=== PATIENT | female | born 1995 | race Caucasian/White ===

== ENCOUNTER 2018-05-26 23:30 | Inpatient (IN) | payer SELFPAY ==
[~2018-05-26] VITALS: Ht 170.2 cm; Wt 136.1 kg
[2018-05-26] MEDS ORDERED: MORPHINE SULFATE 4 MG/ML SYR IVP ONE (23:55)
[2018-05-26] MEDS ORDERED: ONDANSETRON 4 MG/2 ML VIAL IVP ONE (23:55)
[2018-05-27 00:12] LABS: BASOPHILS # (AUTO) 0.1 K/uL (0.00-0.22); BASOPHILS % (AUTO) 0.8 % (0.0-2.0); EOSINOPHILS # (AUTO) 0.4 K/uL (0-0.4); EOSINOPHILS % (AUTO) 2.9 % (0.0-4.0); HEMATOCRIT 38.4 % (36-48); HEMOGLOBIN 12.2 g/dL (12.0-16.0); LYMPHOCYTES % (AUTO) 24.1 % (20.5-51.1); MEAN CORPUSCULAR HEMOGLOBIN 24 pg (27-31); MEAN CORPUSCULAR HGB CONC 32 g/dL (33-37); MEAN CORPUSCULAR VOLUME 75.1 fL (80-94); MONOCYTES # (AUTO) 0.8 K/uL (0.8-1.0); MONOCYTES % (AUTO) 6.2 % (1.7-9.3); NEUTROPHILS # (AUTO) 8.2 K/uL (1.8-7.7); PLATELET COUNT (AUTO) 307 K/uL (140-450); RED BLOOD CELL COUNT(AUTO) 5.12 MIL/uL (4.20-5.40); RED CELL DISTRIBUTION WIDTH 17.8 % (11.6-13.7); WHITE BLOOD COUNT (AUTO) 12.4 K/uL (4.8-10.8)
[2018-05-27 00:27] LABS: ANION GAP 11.2 (8-16); CARBON DIOXIDE 28.8 mmol/L (21-32); CREATININE 0.6 mg/dL (0.6-1.3)
[2018-05-27 00:32] LABS: ALBUMIN 3.9 g/dL (3.4-5.0); TOTAL BILIRUBIN 0.2 mg/dL (0.0-1.0)
[2018-05-27 00:55] LABS: APPEARANCE,URINE HAZY (CLEAR); COLOR,URINE YELLOW (YELLOW)
[2018-05-27 00:56] LABS: BLOOD, URINE 2+ (NEGATIVE); PH,URINE 7.5 (5.0-9.0); UGLUCOSE NEGATIVE (NEGATIVE)
[2018-05-27 00:57] LABS: BILIRUBIN,URINE NEGATIVE (NEGATIVE); LEUKOCYTE ESTERASE ,URINE 1+ (NEGATIVE); NITRITE, URINE POSITIVE (NEGATIVE)
[2018-05-27 01:03] LABS: RBC,URINE 3-10 (FEW) /HPF (0-5)
[2018-05-27] MEDS ORDERED: PIPERACILLIN/TAZOBACTAM 3.375 GM in DEXTROSE 5% 50 ML IV ONE (01:10)
[2018-05-27] MEDS ORDERED: PIPERACILLIN/TAZOBACTAM 3.375 GM VIAL IV ONE (01:20)
[2018-05-27] MEDS ORDERED: KETOROLAC 30 MG/ML VIAL IVP ONE (01:20)
[2018-05-27] MEDS ORDERED: NACL 0.9% 1,000 ML IV ONE (01:25)
[2018-05-27] MEDS ORDERED: MORPHINE SULFATE 2 MG/ML SYR IVP PRN (01:45)
[2018-05-27] MEDS ORDERED: MORPHINE SULFATE 4 MG/ML SYR IVP PRN (01:45)
[2018-05-27] MEDS ORDERED: ONDANSETRON 4 MG/2 ML VIAL IVP PRN (01:45)
[2018-05-27] MEDS ORDERED: ACETAMINOPHEN 325 MG TAB PO PRN (01:45)
[2018-05-27 02:10] VITALS: BP 138/80
[2018-05-27] MEDS: NACL 0.9% 1,000 ML IV SCH ×2 (02:46→12:37)
[2018-05-27] MEDS ORDERED: INFLUENZA VIRUS VACCINE QUAD 0.5 ML SYR IMVAC PRN (05:05)
[2018-05-27 08:00] VITALS: BP 127/71
[2018-05-27 16:00] VITALS: BP 129/77
== END 2018-05-27 17:30 | disposition home or self-care (01) | DRG 445 ==
LOC: MED 23:30 → MTU 05-27 01:44
PROVIDERS: ADMIT Hospitalist; ATTEND Hospitalist
DX: K80.64 Calculus of gallbladder and bile duct with chronic cholecystitis without obstruction (principal); Z68.42 Body mass index [BMI] 45.0-49.9, adult; E66.01 Morbid (severe) obesity due to excess calories
CPT/HCPCS: 36415; 76705; 80053; 81001; 83605; 83690; 85025; 87040; 87081; 87086; 87186; 90658; 96365; 96375; 99285; J1885; J2270; J2405; J2543; Q0092

== ENCOUNTER 2019-02-20 00:38 | Emergency (ER) | payer SELFPAY ==
[~2019-02-20] VITALS: Ht 167.6 cm; Wt 136.1 kg
[2019-02-20 00:40] VITALS: BP 138/90
--- NOTE | 2019-02-20 00:40 | NUR ---
TO BED # 05 AMBULATORY
--- NOTE | 2019-02-20 00:53 | NUR ---
Dr. Braga examining patient.
[2019-02-20] MEDS ORDERED: LORazepam 1 MG TAB PO ONE (00:55)
--- NOTE | 2019-02-20 00:57 | NUR ---
EMT PERFORMING EKG AT BEDSIDE.
--- NOTE | 2019-02-20 01:09 | NUR ---
23 YO F BIB SELF AND MOM PRESENTS TO ED C/O S/SX ANXIETY EPISODES WHILE AT WORK X 2-3 DAYS. PT REPORTS FEELINGS OF SOB, RACING HR, HEAD NUMBNESS AND DIZZINESS. -- PT AWAKE, A/O X 4, SPEECH CLEAR, EQUAL STRENGTH NOTED TO ALL EXTREMETIES, EYES PERRLA. ANSWERING QUESTIONS APPROPRIATELY. -- SKIN PINK, WARM, DRY. BREATHING EVEN, UNLABORED. -- LMP: 2 MONTHS AGO; HX OF IRREGULAR PERIODS PMH-- WAS TOLD SHE HAD ABNORMAL THYROID LEVELS BUT NEVER FOLLOWED UP.
--- NOTE | 2019-02-20 01:45 | NUR ---
PT STATES SHE FEELS BETTER; NO LONGER FEELS ANXIOUS. ATIVAN EFFECTIVE.
[2019-02-20 01:48] VITALS: BP 107/70
== END 2019-02-20 01:48 | disposition home or self-care (01) ==
LOC: MED 00:38
DX: F41.9 Anxiety disorder, unspecified (principal); R20.2 Paresthesia of skin
CPT/HCPCS: 93005; 99284

== ENCOUNTER 2019-11-02 16:20 | Emergency (ER) | payer OTHER, SELFPAY ==
[~2019-11-02] VITALS: Ht 170.2 cm; Wt 131.5 kg
[2019-11-02 16:20] VITALS: BP 156/87
[2019-11-02 17:33] VITALS: BP 134/67
== END 2019-11-02 17:34 | disposition home or self-care (01) ==
LOC: EEVIPCON 16:20 → MED 16:20
DX: R05 Cough (principal); Z20.828 Contact with and (suspected) exposure to other viral communicable diseases; R06.02 Shortness of breath
CPT/HCPCS: 36415; 71045; 87635; 99284; Q0092

== ENCOUNTER 2020-04-14 18:10 | Emergency (ER) | payer OTHER, SELFPAY ==
[~2020-04-14] VITALS: Ht 167.6 cm; Wt 136.1 kg
[2020-04-14 18:16] VITALS: BP 157/90
--- NOTE | 2020-04-14 18:27 | NUR ---
ASHA BRANDT AT BEDSIDE EVALUATING PT.
[2020-04-14] MEDS ORDERED: KETOROLAC 60 MG/2 ML VIAL IM ONE (18:30)
--- NOTE | 2020-04-14 18:40 | NUR ---
C/O L WRIST PAIN X YESTERDAY.PT AOX 4, AFIBRILE , AMBULATORY WITH STEADY GAIT, ABLE TO MOVE LEFT HAND WITH PAIN 9/10 , GOOD RADIAL PULSE AND CAPILLARY REFILL. MED HX: GALL STONE
--- NOTE | 2020-04-14 18:53 | NUR ---
XRAY AT BEDSIDE.
[2020-04-14] MEDS ORDERED: HALOPERIDOL IM 5 MG/ML VIAL ONE (18:58)
--- NOTE | 2020-04-14 19:07 | NUR ---
GAVE REPORT TO JANEL KAMARA , PT COMFORTABLE IN BED SIDE RAILS UP AND LOCK AT LOWEST POSITION.
--- NOTE | 2020-04-14 19:10 | NUR ---
REPORT RECEIVED FROM TOMÁS ISLAS
--- NOTE | 2020-04-14 19:19 | NUR ---
PTS LEFT WRIST WAS PLACED IN A WRIST SPLINT. [place] [facility] [place]
[2020-04-14 19:30] VITALS: BP 157/90
[2020-04-17] MEDS ORDERED: FERR325E14 PO (06:49)
== END 2020-04-14 19:30 | disposition home or self-care (01) ==
LOC: MED 18:10
DX: M25.532 Pain in left wrist (principal)
CPT/HCPCS: 29125; 73110; 96372; 99283; J1885; Q0092; J1630

== ENCOUNTER 2021-04-17 13:34 | Emergency (ER) | payer OTHER ==
[~2021-04-17] VITALS: Ht 170.2 cm; Wt 163.3 kg
[~2021-04-17 13:34] MED LIST: FERR325E14 PO; IBUP-2213 PO; MEDR10TA PO
[2021-04-17 13:43] VITALS: BP 144/52
--- NOTE | 2021-04-17 13:45 | NUR ---
Patient ambulated to bed 09 with steady/even gait.
--- NOTE | 2021-04-17 13:50 | NUR ---
Patient ambulated to restroom for UA.
--- NOTE | 2021-04-17 14:04 | NUR ---
25 y/o F BIB self from home c/o vaginal bleeding and suprapubi abdominal pain x 4 days. Patient A&Ox4, ambulatory, states taking new control 1 month ago and was advised from her PCP to hold a medication that "makes her have a period." Patient states 3 days of taking a brown pill and pausing for the next cycle to begin. Patient reports suprapubic pain, 5/10, cramping/intermittent, non-radiating. Patient states constant dark red bleeding, 6 saturated pads per day x 4 days with "6 half dollar clots per pad." Patient states Ibuprofen 600mg @ 11:45 with relief to pain. Reports nausea and diarrhea that she states is normal for her s/p cholecystectomy. LMP: 02/13. Last BM: today. Pt placed into a gown. Denies fever, chills, vaginal discharge, dysuria, urinary symptoms, vomiting. Bed locked in lowest position, side rails x 1. PMH: HTN, anemia Meds: Atenolol 2.5mg NKA Sx: cholecystectomy
--- NOTE | 2021-04-17 14:10 | NUR ---
Dr. Vasquez is evaluating patient at bedside
[2021-04-17 14:45] LABS: BASOPHILS # (AUTO) 0.1 K/uL (0.00-0.22); EOSINOPHILS # (AUTO) 0.2 K/uL (0-0.4); EOSINOPHILS % (AUTO) 1.5 % (0.0-4.0); HEMATOCRIT 36.8 % (36-48); HEMOGLOBIN 11.4 g/dL (12.0-16.0); LYMPHOCYTES # (AUTO) 2.5 K/uL (2.5-16.5); MEAN CORPUSCULAR HEMOGLOBIN 24 pg (27-31); MEAN CORPUSCULAR HGB CONC 31 g/dL (33-37); MEAN CORPUSCULAR VOLUME 75.3 fL (80-94); MONOCYTES # (AUTO) 1.1 K/uL (0.8-1.0); MONOCYTES % (AUTO) 7.8 % (1.7-9.3); NEUTROPHILS % (AUTO) 71.7 % (42.2-75.2); PLATELET COUNT (AUTO) 342 K/uL (140-450); RED BLOOD CELL COUNT(AUTO) 4.88 MIL/uL (4.20-5.40); RED CELL DISTRIBUTION WIDTH 18.4 % (11.6-13.7)
[2021-04-17 15:02] LABS: ALBUMIN 3.3 g/dL (3.4-5.0); ANION GAP 13.8 (8-16); CARBON DIOXIDE 26.7 mmol/L (21-32); CREATININE 0.6 mg/dL (0.6-1.3); POTASSIUM 4.5 mmol/L (3.5-5.1); TOTAL BILIRUBIN 0.2 mg/dL (0.0-1.0)
[2021-04-17 15:40] VITALS: BP 133/62
--- NOTE | 2021-04-17 15:40 | NUR ---
Patient discharged with v/s stable. Written and verbal after care instructions given and explained. Patient verbalized understanding. Ambulatory with steady gait. All questions addressed prior to discharge. Advised to follow up with PMD.
== END 2021-04-17 15:40 | disposition home or self-care (01) ==
LOC: MED 13:34
DX: N93.9 Abnormal uterine and vaginal bleeding, unspecified (principal); I10 Essential (primary) hypertension; D64.9 Anemia, unspecified; Z79.899 Other long term (current) drug therapy
CPT/HCPCS: 36415; 80053; 85025; 86886; 86900; 86901; 99283

== ENCOUNTER 2021-10-04 11:59 | Emergency (ER) | payer OTHER ==
[~2021-10-04] VITALS: Ht 170.2 cm; Wt 178.3 kg
[2021-10-04 12:00] VITALS: BP 168/83
--- NOTE | 2021-10-04 12:11 | NUR ---
Patient ambulated to bed 11 with steady/even gait
--- NOTE | 2021-10-04 12:20 | NUR ---
25 y/o F BIB self from home c/o dizziness, nausea x 2 days. Patient A&Ox4, ambulatory, states aylin at [place] 3 days ago and diagnosed with URTI with CXR/lab work-up negative. Pt reports productive cough x 2 weeks without relief to symptoms. Pt states taking atenolol prior to arrival. States dizziness worsens with "heat" and alleviates with rest. Denies medications prior to arrival. Denies fever, chills, chest pain, abdominal pain, headache, blurry vision, vomiting, diarrhea. Bed locked in lowest position, side rails x 1. PMH: HTN, CHOLECYSTECTOMY, ANEMIA MEDS: ATENOLOL NKA
[2021-10-04] MEDS ORDERED: PRED20TA5 PO (12:43)
[2021-10-04] MEDS ORDERED: CIPR500T4 PO (12:43)
[2021-10-04] MEDS ORDERED: ONDA8TAB87 PO (12:43)
--- NOTE | 2021-10-04 12:57 | NUR ---
Patient discharged with v/s stable. Written and verbal after care instructions given and explained. Patient alert, oriented and verbalized understanding of instructions. Ambulatory with steady gait. All questions addressed prior to discharge. ID band removed. Patient advised to follow up with PMD. Rx of CIPRO, ZOFRAN, AND PREDNISONE given. Patient educated on indication of medication including possible reaction and side effects. Opportunity to ask questions provided and answered.
[2021-10-04 13:02] VITALS: BP 168/83
== END 2021-10-04 13:02 | disposition home or self-care (01) ==
LOC: MED 11:59
DX: N39.0 Urinary tract infection, site not specified (principal); R05.9 Cough, unspecified; I10 Essential (primary) hypertension; Z79.899 Other long term (current) drug therapy
CPT/HCPCS: 81002; 81025; 99283

== ENCOUNTER 2023-02-03 18:53 | Emergency (ER) | payer OTHER ==
[~2023-02-03] VITALS: Ht 170.2 cm; Wt 149.7 kg
[~2023-02-03 18:53] MED LIST changes: +CIPR500T4 PO; +ONDA8TAB87 PO; +PRED20TA5 PO
[2023-02-03 19:06] VITALS: BP 159/91; PULSE 82; RESP 16; TEMP 98.4; O2SAT 98
[2023-02-03] MEDS ORDERED: NITR100C7 PO (19:53)
[2023-02-03 19:59] VITALS: BP 142/88; PULSE 78; RESP 16; TEMP 98.4; O2SAT 98
[2023-02-03 20:09] LABS: APPEARANCE,URINE SL CLOUDY (CLEAR); BILIRUBIN,URINE NEGATIVE (NEGATIVE); BLOOD, URINE 2+ (NEGATIVE); COLOR,URINE YELLOW (YELLOW); LEUKOCYTE ESTERASE ,URINE NEGATIVE (NEGATIVE); NITRITE, URINE NEGATIVE (NEGATIVE); PH,URINE 6.5 (5.0-9.0); UGLUCOSE NEGATIVE (NEGATIVE)
[2023-02-03 20:20] LABS: RBC,URINE 11-20 (MOD) /HPF (0-5)
[2023-02-03 20:21] LABS: COARSE GRANULAR CASTS,URINE 0-10 /LPF (None Seen)
== END 2023-02-03 19:59 | disposition home or self-care (01) ==
LOC: MED 18:53
DX: N39.0 Urinary tract infection, site not specified (principal); I10 Essential (primary) hypertension; Z79.899 Other long term (current) drug therapy; Z90.49 Acquired absence of other specified parts of digestive tract
CPT/HCPCS: 81001; 81025; 87086; 87491; 99283

== ENCOUNTER 2023-05-11 14:38 | Inpatient (IN) | payer MEDICAID, OTHER ==
[~2023-05-11] VITALS: Ht 170.2 cm; Wt 154.2 kg
[~2023-05-11 14:38] MED LIST changes: +NITR100C7 PO
[2023-05-11 15:26] VITALS: BP 155/80; PULSE 121; RESP 18; TEMP 97.6; O2SAT 98
[2023-05-11 17:19] LABS: BASOPHILS # (AUTO) 0.1 K/uL (0.00-0.22); BASOPHILS % (AUTO) 0.7 % (0.0-2.0); EOSINOPHILS # (AUTO) 0.2 K/uL (0-0.4); EOSINOPHILS % (AUTO) 1.8 % (0.0-4.0); HEMATOCRIT 24.9 % (36-48); HEMOGLOBIN 7.7 g/dL (12.0-16.0); LYMPHOCYTES # (AUTO) 2.5 K/uL (2.5-16.5); LYMPHOCYTES % (AUTO) 17.6 % (20.5-51.1); MEAN CORPUSCULAR HEMOGLOBIN 23 pg (27-31); MEAN CORPUSCULAR HGB CONC 31 g/dL (33-37); MEAN CORPUSCULAR VOLUME 72.6 fL (80-94); MONOCYTES # (AUTO) 0.8 K/uL (0.8-1.0); MONOCYTES % (AUTO) 5.8 % (1.7-9.3); NEUTROPHILS # (AUTO) 10.4 K/uL (1.8-7.7); NEUTROPHILS % (AUTO) 74.1 % (42.2-75.2); PLATELET COUNT (AUTO) 387 K/uL (140-450); RED BLOOD CELL COUNT(AUTO) 3.43 MIL/uL (4.20-5.40); RED CELL DISTRIBUTION WIDTH 18.2 % (11.6-13.7); WHITE BLOOD COUNT (AUTO) 14.1 K/uL (4.8-10.8)
[2023-05-11 17:32] LABS: INR 0.93 (0.8-1.2); PARTIAL THROMBOPLASTIN TIME 25.2 secs (22-35.6); PROTHROMBIN TIME 9.8 secs (10.8-13.4)
[2023-05-11 17:40] LABS: ANION GAP 11.7 (8-16); CALCIUM 8.6 mg/dL (8.5-10.1); CREATININE 0.7 mg/dL (0.6-1.3); POTASSIUM 3.7 mmol/L (3.5-5.1); TOTAL BILIRUBIN 0.2 mg/dL (0.0-1.0); TOTAL PROTEIN, SERUM 7.6 g/dL (6.4-8.2)
[2023-05-11 18:23] VITALS: O2SAT 99
[2023-05-11 18:32] LABS: BILIRUBIN,URINE 1+ (NEGATIVE); BLOOD, URINE 3+ (NEGATIVE); LEUKOCYTE ESTERASE ,URINE TRACE (NEGATIVE); NITRITE, URINE POSITIVE (NEGATIVE); PROTEIN,URINE 3+ (NEGATIVE); UGLUCOSE TRACE (NEGATIVE)
[2023-05-11 18:33] LABS: APPEARANCE,URINE SLIGHTLY BLOODY (CLEAR); COLOR,URINE RED (YELLOW)
[2023-05-11] MEDS: DEXT 5% /NACL 0.9% 1,000 ML IV SCH (18:37)
[2023-05-11 18:41] LABS: ICTOTEST NEGATIVE (NEGATIVE)
[2023-05-11 18:43] LABS: BACTERIA,URINE FEW /HPF (None Seen); RBC,URINE 11-20 (MOD) /HPF (0-5); SQUAMOUS EPITHELIAL CELL,UR 0-3 (FEW) /LPF (0-3 (FEW)); WBC,URINE 0-5 /HPF (0-5)
[2023-05-11 19:25] VITALS: O2SAT 99
[2023-05-11 19:47] LABS: FLU A ANTIGEN negative (NEGATIVE); FLU B ANTIGEN NEGATIVE (NEGATIVE)
[2023-05-11] MEDS ORDERED: ONDANSETRON 4 MG/2 ML VIAL IM/IVP PRN (20:55)
[2023-05-11] MEDS ORDERED: POTASSIUM CHLORIDE 10 MEQ TABER PO PRN (20:55)
[2023-05-11] MEDS ORDERED: HYDROcodone/APAP 7.5/325 MG 1 TAB PO PRN (20:55)
[2023-05-11] MEDS ORDERED: guaiFENesin DM 200/20 MG-10 ML 10 ML UDC PO PRN (20:55)
[2023-05-11] MEDS ORDERED: ZOLPIDEM 5 MG TAB PO PRN (20:55)
[2023-05-11] MEDS ORDERED: DOCUSATE SODIUM 100 MG GELCAP PO PRN (20:55)
[2023-05-11 22:20] LABS: CHOL/HDL RATIO 3.8 (1-4.5); FREE T4 (FREE THYROXINE) 1.07 ng/dL (0.76-1.46); MAGNESIUM 1.9 mg/dL (1.8-2.4); PHOSPHORUS 2.9 mg/dL (2.5-4.9); THYROID STIMULATING HORMONE 2.15 uIU/mL (0.34-3.74)
[2023-05-11] MEDS ORDERED: cefTRIAXone 1,000 MG VIAL ONE (23:23)
[2023-05-11] MEDS ORDERED: ATEN25TA7 PO (23:44)
[2023-05-11] MEDS ORDERED: [UNRECOGNIZED DRUG - CODE] PO (23:46)
[2023-05-12] VITALS (7 sets, daily range): BP systolic 140–145; BP diastolic 75–85; PULSE 83–92; RESP 18–19; TEMP 96.6–97.6; O2SAT 96–98
[2023-05-12] MEDS: ACETAMINOPHEN 325 MG TAB PO PRN ×2 (02:26→12:40)
[2023-05-12] MEDS: DEXT 5% /NACL 0.9% 1,000 ML IV SCH ×2 (04:20→14:20)
[2023-05-12] MEDS ORDERED: medroxyPROGESTERone 10 MG TAB PO SCH (09:00)
[2023-05-12] MEDS ORDERED: FERROUS SULFATE 325 MG TABEC PO SCH (09:00)
[2023-05-12] MEDS ORDERED: PANTOPRAZOLE 40 MG TABEC PO SCH (09:00)
[2023-05-12 09:30] LABS: BASOPHILS # (AUTO) 0.1 K/uL (0.00-0.22); BASOPHILS % (AUTO) 0.6 % (0.0-2.0); EOSINOPHILS # (AUTO) 0.2 K/uL (0-0.4); EOSINOPHILS % (AUTO) 1.9 % (0.0-4.0); HEMATOCRIT 25.2 % (36-48); HEMOGLOBIN 7.8 g/dL (12.0-16.0); LYMPHOCYTES # (AUTO) 2.1 K/uL (2.5-16.5); MEAN CORPUSCULAR HEMOGLOBIN 23 pg (27-31); MEAN CORPUSCULAR HGB CONC 31 g/dL (33-37); MEAN CORPUSCULAR VOLUME 73.9 fL (80-94); MONOCYTES # (AUTO) 0.7 K/uL (0.8-1.0); MONOCYTES % (AUTO) 5.9 % (1.7-9.3); NEUTROPHILS # (AUTO) 8.5 K/uL (1.8-7.7); NEUTROPHILS % (AUTO) 73.6 % (42.2-75.2); PLATELET COUNT (AUTO) 343 K/uL (140-450); RED BLOOD CELL COUNT(AUTO) 3.41 MIL/uL (4.20-5.40); RED CELL DISTRIBUTION WIDTH 18.5 % (11.6-13.7); WHITE BLOOD COUNT (AUTO) 11.6 K/uL (4.8-10.8)
[2023-05-12 09:37] LABS: ANION GAP 14.7 (8-16); CARBON DIOXIDE 26.6 mmol/L (21-32); CREATININE 0.6 mg/dL (0.6-1.3); POTASSIUM 4.3 mmol/L (3.5-5.1)
[2023-05-12 16:28] LABS: AMPHETAMINE, URINE NEGATIVE ng/ml (NEG <=1000); BARBITURATE, URINE NEGATIVE ng/ml (NEG <=200); BENZODIAZEPINE, URINE NEGATIVE ng/mL (NEG <=200); CANNABINOID, URINE NEGATIVE ng/mL (NEG <=50); COCAINE, URINE NEGATIVE ng/mL (NEG <=300); OPIATE, URINE NEGATIVE ng/mL (NEG <=2000); PHENCYCLIDINE SCREEN,URINE NEGATIVE ng/mL (NEG <=25)
[2023-05-12 17:11] LABS: BASOPHILS # (AUTO) 0.1 K/uL (0.00-0.22); BASOPHILS % (AUTO) 0.7 % (0.0-2.0); EOSINOPHILS # (AUTO) 0.2 K/uL (0-0.4); EOSINOPHILS % (AUTO) 1.9 % (0.0-4.0); HEMOGLOBIN 9.3 g/dL (12.0-16.0); LYMPHOCYTES # (AUTO) 2.5 K/uL (2.5-16.5); LYMPHOCYTES % (AUTO) 19.9 % (20.5-51.1); MEAN CORPUSCULAR HEMOGLOBIN 24 pg (27-31); MEAN CORPUSCULAR HGB CONC 32 g/dL (33-37); MEAN CORPUSCULAR VOLUME 75.8 fL (80-94); MONOCYTES # (AUTO) 0.9 K/uL (0.8-1.0); MONOCYTES % (AUTO) 7.1 % (1.7-9.3); NEUTROPHILS # (AUTO) 8.8 K/uL (1.8-7.7); NEUTROPHILS % (AUTO) 70.4 % (42.2-75.2); PLATELET COUNT (AUTO) 345 K/uL (140-450); RED BLOOD CELL COUNT(AUTO) 3.82 MIL/uL (4.20-5.40); RED CELL DISTRIBUTION WIDTH 19.6 % (11.6-13.7); WHITE BLOOD COUNT (AUTO) 12.5 K/uL (4.8-10.8)
[2023-05-13 08:08] LABS: FOLIC ACID 9.5 ng/mL (>3.0)
[2023-05-13 17:26] LABS: HEMOGLOBIN A1C 6.6 % (4.8-5.6)
[2023-05-13 17:27] LABS: T4 (THYROXINE) 12.8 ug/dL (4.5 - 12.0)
== END 2023-05-12 18:35 | disposition home or self-care (01) | DRG 720 ==
LOC: MED 14:38 → MMU 18:23 → MTU 20:31
PROVIDERS: ADMIT Family Medicine; ATTEND Family Medicine
PROC: 30233N1 Transfusion of Nonautologous Red Blood Cells into Peripheral Vein, Percutaneous Approach (ICD-10-PCS; principal; 2023-05-12)
DX: A41.9 Sepsis, unspecified organism (principal); E44.1 Mild protein-calorie malnutrition; Z68.43 Body mass index [BMI] 50.0-59.9, adult; N04.9 Nephrotic syndrome with unspecified morphologic changes; D50.0 Iron deficiency anemia secondary to blood loss (chronic); E66.9 Obesity, unspecified; I10 Essential (primary) hypertension; N92.0 Excessive and frequent menstruation with regular cycle; N93.8 Other specified abnormal uterine and vaginal bleeding; Z20.822 Contact with and (suspected) exposure to COVID-19; N39.0 Urinary tract infection, site not specified
CPT/HCPCS: 36415; 36430; 71045; 76856; 80048; 80053; 80305; 81001; 82150; 82607; 82728; 82746; 83036; 83540; 83690; 83735; 83880; 84100; 84436; 84439; 84443; 84479; 85025; 85610; 85730; 86886; 86900; 86901; 86920; 87081; 96374; 99291; J0696; J7060; P9016; Q0092